=== PATIENT | male | born 1995 | race Caucasian/White ===

== ENCOUNTER 2022-03-09 09:25 | Outpatient (CLI) | payer OTHER ==
[2022-03-09] VITALS (11 sets, daily range): BP systolic 108–132; BP diastolic 68–87
[~2022-03-09] VITALS: Ht 162.6 cm; Wt 65.5 kg
[2022-03-09] MEDS ORDERED: NS IV 1000 ML 1,000 ML IV STA (09:28)
[2022-03-09] MEDS ORDERED: MIDAZOLAM 2 MG/2 ML (VERSED) VIAL IVP ONE (09:30)
[2022-03-09] MEDS ORDERED: LIDOCAINE 1% INJ 20 ML VIAL INJ ONE (09:30)
[2022-03-09] MEDS ORDERED: fentaNYL INJ 100 MCG/2 ML AMP IVP ONE (09:30)
[2022-03-09 09:54] LABS: ABSOLUTE RETIC # 96 10e9/uL (24-90); BASOPHILS # (AUTO) 0.1 10^3/uL (0.0-0.1); BASOPHILS % (AUTO) 1 % (0-10); EOSINOPHILS # (AUTO) 0.1 10^3/uL (0.0-0.3); EOSINOPHILS % (AUTO) 2 % (0-10); HEMATOCRIT 46 % (40-54); HEMOGLOBIN 15.9 g/dL (13.3-17.7); LYMPHOCYTES # (AUTO) 1.3 10^3/uL (1.0-4.0); LYMPHOCYTES % (AUTO) 26 % (12-44); MEAN CORPUSCULAR HEMOGLOBIN 27 pg (25-34); MEAN CORPUSCULAR HGB CONC 35 g/dL (32-36); MEAN CORPUSCULAR VOLUME 77 fL (80-99); MEAN PLATELET VOLUME 11.2 fL (9.0-12.2); MONOCYTES # (AUTO) 0.3 10^3/uL (0.0-1.0); MONOCYTES % (AUTO) 7 % (0-12); NEUTROPHILS % (AUTO) 63 % (42-75); RETICULOCYTE % 1.61 % (0.50-2.40); WHITE BLOOD COUNT 4.7 10^3/uL (4.3-11.0)
[2022-03-09 10:06] LABS: PLATELET COUNT 31 10^3/uL (130-400)
[2022-03-09 10:07] LABS: INR 1.1 (0.8-1.4); PROTHROMBIN TIME PATIENT 14.1 SEC (12.2-14.7)
[2022-03-09] MEDS ORDERED: LORA10TA76 PO (10:57)
[2022-03-09 10:58] LABS: BAND NEUTROPHILS 0 %; BASOPHILS % (MANUAL) 1 %; EOSINOPHILS % (MANUAL) 3 %; LYMPHOCYTES % (MANUAL) 26 %; MICROCYTOSIS SLIGHT; MONOCYTES % (MANUAL) 5 %; NEUTROPHILS % (MANUAL) 65 %
--- NOTE | 2022-03-09 11:12 | Pre-Op Note & Conscious Sedat ---
Pre-Operative Progress Note H&P Reviewed The H&P was reviewed, patient examined and no changes noted. Date H&P Reviewed: Mar 09, 2022 Time H&P Reviewed: 09:00 Pre-Op Diagnosis: thrombocytopenia Conscious Sedation Pre-Proced Time 09:00 ASA Score 2 For ASA 3 and 4: Consider anesthesia and medical clearance. Also, for patients with a history of failed moderate sedation consider anesthesia. Airway Lungs Heart ASA score ASA 1: a normal healthy patient ASA 2: a patient with a mild systemic disease (mid diabetes, controlled hypertension, obesity ASA 3: a patient with a severe systemic disease that limits activity (angina, COPD, prior Myocardial infarction) ASA 4: a patient with an incapacitating disease that is a constant threat to life (CHF, renal failure) ASA 5: a moribund patient not expected to survive 24 hrs. (ruptured aneurysm) ASA 6: a declared brain- patient whose organs are being harvested. For emergent operations, add the letter E after the classification Mallampati Classification Grade 2 Sedation Plan Analgesia, Amnesia, Plan communicated to team members, Discussed options with teresa irizarry/fam, Discussed risks with patient/fam The patient is an appropriate candidate to undergo the planned procedure, sedation, and anesthesia. The patient immediately re-assessed prior to indication. LIDYA CERVANTES MD Mar 09, 2022 11:12
--- NOTE | 2022-03-09 11:29 | Diagnostic Imaging Report ---
INDICATION: Thrombocytopenia. Patient presents for CT-guided bone marrow aspiration and biopsy. TECHNIQUE: The patient was brought to the CT suite and placed on the table in the prone position. Axial imaging through the pelvis was performed to evaluate for an appropriate entry site. The low back was prepped and draped in the usual sterile fashion. The procedure was performed utilizing conscious sedation with Radiology nursing and constant patient monitoring. The patient was given a total of 50 micrograms of fentanyl intravenously. The total procedure time was approximately 4 minutes. DETAILS OF THE PROCEDURE: The biopsy needle was advanced and placed with its tip along the posterior cortex of the right iliac bone. The needle was advanced through the cortex utilizing a bone marrow drill. Two bone marrow aspirates were then obtained. Next, the bone marrow drill was utilized to obtain a bone marrow core biopsy. The needle was removed and hemostasis was obtained using manual compression. The patient tolerated the procedure well and left the Department in stable condition. IMPRESSION: Successful CT-guided bone marrow aspiration and core biopsy utilizing conscious sedation. Dictated by: Dictated on workstation # [id number]
[2022-03-09] MEDS ORDERED: HYDROcodone/APAP 5 MG/325 MG (LORTAB) TAB PO PRN (11:30)
[2022-03-09] MEDS ORDERED: ONDANSETRON 4 MG/2 ML (SDV) Z0FRAN IVP ONE (12:15)
[2022-03-09] MEDS ORDERED: ONDANSETRON 4 MG/2 ML (SDV) Z0FRAN ONE (12:18)
== END 2022-03-09 13:38 | disposition home or self-care (01) ==
LOC: SDC 09:25
PROVIDERS: ATTEND Internal Medicine Hematology & Oncology
DX: D69.6 Thrombocytopenia, unspecified (principal)
CPT/HCPCS: 36415; 38222; 77012; 85007; 85027; 85045; 85055; 85610; 85730